=== PATIENT | male | born 1950 | race Caucasian/White ===

== ENCOUNTER 2016-12-15 11:09 | Emergency (ER) | payer OTHER, MEDICAID ==
[~2016-12-15] VITALS: Ht 165.1 cm; Wt 77.3 kg
[2016-12-15 15:37] LABS: BASOPHIL % 0.7 % (0-2); PLATELET COUNT 199 x10^3mcL (130-400); RED CELL DISTRIBUTION WIDTH 12.6 % (11.5-14.5)
[2016-12-15 15:55] LABS: CARBON DIOXIDE 32.2 mmol/L (21-32); CHLORIDE SERUM 100 mmol/L (98-107); GFR1 > 60 mL/min; GLUCOSE SERUM 119 mg/dL (74-106); POTASSIUM SERUM 3.6 mmol/L (3.5-5.1); SODIUM SERUM 138 mmol/L (136-145)
[2016-12-15 15:58] LABS: ALBUMIN 3.6 g/dL (3.4-5.0); ALKALINE PHOSPHATASE 73 U/L (46-116); ALT/SGPT 20 U/L (16-63); AST/SGOT 16 U/L (15-37); BILIRUBIN TOTAL 0.9 mg/dL (0.20-1.00); TOTAL PROTEIN, SERUM 8.2 g/dL (6.4-8.2)
[2016-12-15 15:59] LABS: AMPHETAMINE QUAL UR NONE DETECTED (NEG <=1000)
[2016-12-15 16:04] LABS: CHOLESTEROL 216 mg/dL (<200)
[2016-12-15 16:58] VITALS: BP 135/76
== END 2016-12-15 16:59 | disposition home or self-care (01) ==
LOC: ED 11:09
PROVIDERS: Emergency Medicine
DX: G89.29 Other chronic pain (principal); R51 Headache
CPT/HCPCS: 36415; 83880; G0480; Q0092